=== PATIENT | male | born 1955 | race Caucasian/White ===

== ENCOUNTER 2016-05-30 07:23 | Inpatient (IN) | payer OTHER ==
--- NOTE | 2016-05-15 21:17 | HP ---
HISTORY AND PHYSICAL: DATE OF SURGERY: 05/30/16 DATE OF OFFICE VISIT: 05/15/16 SURGEON: Tina Hinojosa MD PROCEDURE: Left total hip arthroplasty. CHIEF COMPLAINT: Left hip pain. HISTORY OF PRESENT ILLNESS: Mr. Bose is a 61-year-old gentleman with complaints of left hip pain. He has failed conservative management. He has elected to proceed with a left total hip arthroplasty, which is scheduled for with Dr. Hinojosa. PAST MEDICAL HISTORY: Prostate cancer, history of sepsis following prostate surgery, and sleep apnea. PAST SURGICAL HISTORY: Prostate surgery, umbilical hernia repair, ORIF of the left thumb, ORIF of the right tibia, ORIF of the right ankle, ORIF of the left wrist. CURRENT MEDICATIONS: None. ALLERGIES: PIPERACILLIN causing rash and swelling. FAMILY HISTORY: Prostate cancer and heart disease. SOCIAL HISTORY: He is a 61-year-old gentleman. He lives with his spouse. 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 He does not smoke, use drugs or alcohol. REVIEW OF SYSTEMS: A complete 14-point review of systems was reviewed with the patient. All was negative or noncontributory. PHYSICAL EXAMINATION GENERAL: He is well developed, well nourished, in no acute distress. VITAL SIGNS: He stands 5 feet 9 inches tall, he is 210 pounds. His blood pressure is 115/80. His heart rate is 68. HEENT: Normocephalic, atraumatic. NECK: Supple. No palpable lymph nodes. Trachea is midline. PULMONARY: The lungs are clear to auscultation bilaterally. No wheezes, rhonchi, or rales. CARDIO: Regular rate and rhythm. Strong S1, S2. No murmurs, gallops, or rubs. No peripheral edema. ABDOMEN: Soft, nontender, nondistended. NEUROLOGICAL: Alert and oriented x3. Cranial nerves II through XII are intact. MUSCULOSKELETAL: Left lower extremity: The skin is intact. He walks with an antalgic type gait favoring his left leg. The lower extremity muscle group strengths are intact to 5/5. He has intact sensation and 2+ dorsalis pedis pulses. ASSESSMENT AND PLAN: Mr. Bose is a 61-year-old gentleman with complaints of left hip pain. He has failed conservative management and has elected to proceed with a left total hip arthroplasty, which is scheduled for 05/30/[address] Hinojosa discussed the risks and benefits of the surgery at today's visit and all of his questions were answered. Coumadin, Percocet, and Colace were sent to his pharmacy for postoperative pain control and DVT prophylaxis. He will follow up with Dr. Hinojosa in 10 to 14 days after the surgery. LETI SPAIN [id number]/[facility] #: [id number] MTDCorine
[~2016-05-30 07:23] MED LIST: Buffered Lidocaine 1% SYRIN* 3 ML/SYR SYRINGE INTRADERM ONE; Clindamycin 900 MG IVPREMIX(* 900 MG/50 ML SDV IV ONE; Famotidine IV* 10 MG/ML 2 ML (20 mg) IV ONE; Famotidine IV* 10 MG/ML 2 ML (20 mg) ONE; Morphine INJ* 2 MG/ML 1 ML SYRINGE IV PRN; PROCHLORPERAZINE INJ 5 MG/ML 2 ML VIAL IV PRN; Scopolamine 1.5 mg* PATCH ONE; Scopolamine 1.5 mg* PATCH TRANSDERM ONE; fentaNYL* 50 MCG/ML 2 ML VIAL (100 MCG VIAL) IV PRN; oxyCODONE/Acetamin 5/325 MG* TAB PO PRN
[2016-05-30] MEDS ORDERED: fentaNYL* 50 MCG/ML 2 ML VIAL (100 MCG VIAL) ONE (07:59)
[2016-05-30] MEDS ORDERED: KETAMINE HCL* 50 MG/ML 10 ML VIAL ONE (08:00)
[2016-05-30] MEDS ORDERED: Morphine PF AMP (0.5MG/ML)* 5 MG/10 ML AMP ONE (08:00)
[2016-05-30] MEDS ORDERED: Midazolam* 1 MG/ML 5 ML VIAL (5 MG) ONE (08:00)
[2016-05-30] MEDS ORDERED: Midazolam* 1 MG/ML 2 ML VIAL (2 MG) ONE (09:30)
[2016-05-30] MEDS ORDERED: Ondansetron INJ* 2 MG/ML VIAL IV PRN (10:00)
[2016-05-30] MEDS ORDERED: PROCHLORPERAZINE INJ 5 MG/ML 2 ML VIAL IV PRN (10:00)
[2016-05-30] MEDS ORDERED: Naloxone* 0.4 MG/ML 1 ML VIAL IV PRN (10:00)
[2016-05-30] MEDS ORDERED: oxyCODONE/Acetamin 5/325 MG* TAB PO PRN (10:00)
[2016-05-30] MEDS ORDERED: Ibuprofen TAB* 600 MG PO PRN (10:00)
[2016-05-30] MEDS ORDERED: Nalbuphine* 20 MG/ML 1 ML VIAL IV PRN (10:00)
[2016-05-30] MEDS ORDERED: Dexamethasone IV* 4 MG/ML 1 ML (4 MG) ONE (10:52)
[2016-05-30] MEDS ORDERED: Phenylephrine INJ* 10 MG/ML 1 ML VIAL (10 MG) ONE (10:52)
[2016-05-30] MEDS ORDERED: Propofol* 500 MG/50 ML BTL ONE (10:52)
[2016-05-30] MEDS ORDERED: Ondansetron INJ* 2 MG/ML VIAL ONE (10:52)
[2016-05-30] MEDS ORDERED: Lidocaine 2% PF* 5 ML VIAL ONE (10:52)
--- NOTE | 2016-05-30 11:38 | RAD ---
INDICATION: Left hip replacement surgery intraoperative film. COMPARISON: Comparison is made with a prior x-ray study of the left hip from April 29, 2016. TECHNIQUE: An AP portable film of the pelvis was obtained in the operating room. FINDINGS: There are postsurgical changes present in the left hip. The acetabular prostheses is in place. There is a femoral prostheses template present. IMPRESSION: INTRAOPERATIVE CONTROL FILM.
[2016-05-30] MEDS ORDERED: Magnesium Hydroxide LIQ* 30 ML UDC PO PRN (11:58)
[2016-05-30] MEDS ORDERED: LACTULOSE* 30 ML UDC PO PRN (11:58)
[2016-05-30] MEDS ORDERED: Bisacodyl SUPP* 10 MG SUPP PR PRN (11:58)
[2016-05-30] MEDS ORDERED: Acetaminophen TAB* 325 MG PO PRN (11:58)
[2016-05-30] MEDS ORDERED: Polyethylene Glycol 3350* 17 GM PACKET PO PRN (11:58)
[2016-05-30] MEDS ORDERED: Morphine INJ* 2 MG/ML 1 ML SYRINGE IV PRN (11:58)
[2016-05-30] MEDS ORDERED: diPHENhydraMINE IV* 50 MG/ML 1 ml VIAL (BENADRYL) IV PRN (11:58)
--- NOTE | 2016-05-30 12:44 | RAD ---
HISTORY: Status post left hip arthroplasty COMPARISONS: April 29, 2016 VIEWS: 3, Frontal view of the pelvis with frontal and crosstable lateral views of the left hip FINDINGS: BONE DENSITY: Normal. BONES: The patient is status post left hip arthroplasty. There is no hardware failure or osteolysis. JOINTS: There is no arthropathy. ALIGNMENT: There is no dislocation. SOFT TISSUES: Unremarkable. OTHER FINDINGS: None. IMPRESSION: STATUS POST LEFT HIP ARTHROPLASTY
[2016-05-30] MEDS ORDERED: Warfarin TAB(*) 6 MG PO ONE (17:00)
[2016-05-30] MEDS: Clindamycin 600 MG IVPREMIX(* 600 MG/50 ML SDV IV SCH (17:33)
[2016-05-30] MEDS: Docusate CAP* 100 MG PO SCH (21:28)
[2016-05-31] MEDS ORDERED: Ondansetron TAB* 4 MG PO PRN (01:15)
[2016-05-31] MEDS ORDERED: oxyCODONE/Acetamin 5/325 MG* TAB PO PRN (01:15)
[2016-05-31] MEDS: Clindamycin 600 MG IVPREMIX(* 600 MG/50 ML SDV IV SCH ×3 (02:05→17:27)
--- NOTE | 2016-05-31 05:04 | OP ---
OPERATIVE REPORT: DATE OF OPERATION: 05/30/16 DATE OF : 57 SURGEON: Tina Hinojosa MD COMPENSATION DIRECTOR: LETI Green ANESTHESIOLOGIST: Dr. Quintanilla. ANESTHESIA: Spinal. PRE-OP DIAGNOSIS: Severe endstage osteoarthritis of the left hip joint. POST-OP DIAGNOSIS: Severe endstage osteoarthritis of the left hip joint. OPERATIVE PROCEDURE: Left total hip arthroplasty. COMPLICATIONS: None. EBL: 300 cc. SPECIMEN: Femoral head and the acetabular reaming sent to pathology. COMPLICATIONS: None. HARDWARE: This is uncemented [place] total hip hardware. The acetabulum size 58 Tritanium cluster hole shell. 125 mm 625 cancellous bone screw was used. For the insert, a 0-degree Trident X3 polye thylene insert 40F. For the femoral stem, an Accolade TMZF 132-degree neck, size 3.5. Biolox delta 40 mm femoral head was used with a -2.5 [place] V40 taper adaptor sleeves. BRIEF HISTORY/INDICATIONS: Mr. Bose is a 61-year-old gentleman with the years of increasingly sev ere left hip pain. He failed conservative treatment and elected to undergo left total hip arthropla sty. Radiographs confirmed severe endstage disease with bone on bone contact. Informed consent was obtained from the patient. He understood the risks of procedure included, but were not limited to bleeding, infection, damage to nearby structures, continued pain, need for further surgery, intraope rative fracture, nerve palsy, hardware failure, loosening, dislocation, leg length discrepancy, stro ke, heart attack, blood clot and . He wished to proceed. INTRAOPERATIVE FINDINGS: Intraoperatively, the patient was noted to have severe endstage arthritis with complete loss of cartilage in the acetabulum and femoral head. DESCRIPTION OF PROCEDURE: Mr. Bose was identified in the preanesthesia unit. His left lower extre mity was marked as the correct operative side. Informed consent was signed and placed in the chart. The patient was taken to the operating room and placed under spinal anesthesia without difficulty. A Blake catheter was placed. The patient was placed in the right lateral decubitus position on th e PEG board. All bony prominences were well padded. Left lower extremity was prepped and draped in the usual sterile fashion. Preop time-out was made to correctly identify the patient's side and si te. Appropriate perioperative antibiotics were given within 1 hour of incision. A 12 cm standard posterior hip incision was made with a 10 blade and carried down to the lateral fas cial layer. Lateral fascia was incised in line with skin incision. A Charnley retractor was placed and the posterior aspect of the hip joint was visualized. The piriformis and conjoined tendons wer e identified and elevated off the posterolateral femur using electrocautery. These were tagged with two #5 Ethibonds. Next, electrocautery was used to make a standard posterolateral capsular flap. This was also tagged with two #5 Ethibonds. The hip was carefully dislocated. Lesser troch to center of the femoral head measured 55 mm in jocelynn th. Oscillating saw was used to make the appropriate femoral neck cut. The femoral head was carefu lly removed and sent to pathology. The femur was carefully retracted anteriorly. After appropriate placement of retractors, the acetab ulum was easily visualized. A long-handle knife was used to remove any remaining labrum from the ac etabular rim. The acetabulum was sequentially reamed up to a size 57. Bleeding bone bed was obtain ed. 57 trial had good stability, as well as anteversion and abduction angle. Final implant chosen was a 58 mm cluster hole shell Tritanium type. This was impacted into the acetabulum without diffic ulty. There was excellent stability. 125 mm cancellous bone screw was placed in the superior poste rior quadrant for additional stability. There was appropriate anteversion and abduction angle. A Trident X3 0-degree liner 40F was chosen. This was impacted into the acetabular cup without diffi culty. Stability of the the liner was checked and rechecked and noted to be stable. Small amount of osteophyte was removed using a rongeur from the inferior acetabular surface. Attention was next to turned to preparation of the proximal femur. After appropriate placement of r etractor, the proximal femur was easily visualized. Box cut osteotome and canal finder were used to enter the proximal femur. The proximal femur was sequentially reamed up to a size 3.5. A 3.5 broa ch had excellent stability and appropriate anteversion. A 132 neck trial was chosen as well as a 40 , -2.5 femoral head trial. Lesser troch to center of the femoral head measured approximately 55 mm . The hip was reduced and taken through a range of motion. There was approximate leg length and sof t tissue tension. The hip was stable in all positions. The hip was carefully dislocated. All trials were carefully removed. Final implant chosen was an A ccolade TMZF 3.5 with 132-degree neck. This was impacted into the femoral canal without difficulty. There was excellent stability. A 40, - 2.5 Biolox Delta ceramic head was chosen. This was impact ed onto the femoral neck without difficulty. The hip was reduced and taken through range of motion. The hip was stable in all positions. The hi p joint was copiously irrigated with sterile saline. Previously tagged capsule and tendons were estuardo pproximated to the posterolateral femur through 2 trochanteric drill holes. The lateral fascial lay er was reapproximated using interrupted #1 Vicryls. The rest of the incision was closed in a layere d fashion using 0 and 2-0 Vicryls. Skin was closed using 3-0 Monocryl and Dermabond. Sterile Adapti c, 4x4s, and paper tape were used to cover the incision. The patient's anesthesia was reversed without difficulty. He was taken to the PACU in stable condit ion. Intended weightbearing will be weightbearing as tolerated with posterior hip precautions. Int ended DVT prophylaxis will be Coumadin with a Lovenox bridge. [id number]/[facility] #: [id number]
[2016-05-31 06:24] LABS: Hematocrit 38 % (42-52); Hemoglobin 13.1 g/dl (14.0-18.0)
[2016-05-31 06:42] LABS: BUN/Creatinine Ratio 14.6 (8-20); Calcium 8.6 mg/dL (8.6-10.3); EGFR African American 123.3 (>60); EGFR Non-African American 95.8 (>60); Potassium 4.2 mmol/L (3.5-5.0)
--- NOTE | 2016-05-31 06:54 | PN ---
Progress Note - Progress Note SOAP: Subjective: Pt. is alert, reports pain is controlled. Objective: LLE - dressing c/d/i, distally +df/pf, full sens lt, 2+ dp pulse. Vital Signs: Temp Pulse Resp BP Pulse Ox 97.3 F 61 16 98/64 93 05/31/16 03:39 05/31/16 03:39 05/31/16 06:00 05/31/16 03:39 05/31/16 06:00 Laboratory Results - last 24 hr 05/31/16 05/31/16 05/31/16 05:57 05:57 05:57 Hgb 13.1 L Hct 38 L INR (Anticoag Therapy) 1.10 Sodium 134 Potassium 4.2 Chloride 103 Carbon Dioxide 25 Anion Gap 6 BUN 12 Creatinine 0.82 Est GFR ( Amer) 123.3 Est GFR (Non-Af Amer) 95.8 BUN/Creatinine Ratio 14.6 Glucose 166 H Calcium 8.6 Assessment: 61 yo M pod 2 s/p LTHA Plan: wbat with post hip precautions pt/ot 8 mg coumadin tonight with lovenox bridge plan to d/c to home tomorrow with vns
[2016-05-31] MEDS: Docusate CAP* 100 MG PO SCH ×2 (08:03→19:49)
[2016-05-31] MEDS: oxyCODONE TAB* 5 MG TAB PO PRN (08:03)
--- NOTE | 2016-05-31 09:44 | PN ---
Progress Note - Progress Note Note: Anesthesia duramorph followup. Pt did well pain alert. s/p THR, continue oral medswise. NO N/V, -ABARCA, neuro ok, VSS,
[2016-05-31] MEDS: Enoxaparin(*) 30 MG/0.3 ML SYR SUBCUT SCH (10:18)
[2016-05-31] MEDS: oxyCODONE/Acetamin 5/325 MG* TAB PO PRN ×2 (11:37→23:37)
[2016-05-31] MEDS ORDERED: Warfarin TAB(*) 4 MG PO ONE (17:00)
[2016-06-01] MEDS: oxyCODONE/Acetamin 5/325 MG* TAB PO PRN (04:13)
[2016-06-01 07:15] LABS: Hematocrit 39 % (42-52); Hemoglobin 13.3 g/dl (14.0-18.0)
[2016-06-01 08:21] VITALS: BP 122/78
[2016-06-01] MEDS: oxyCODONE TAB* 5 MG TAB PO PRN (08:30)
[2016-06-01] MEDS: Docusate CAP* 100 MG PO SCH (08:30)
[2016-06-01] MEDS: Enoxaparin(*) 30 MG/0.3 ML SYR SUBCUT SCH (08:31)
--- NOTE | 2016-06-01 09:09 | PN ---
Progress Note - Progress Note SOAP: Subjective: [Pt reports doing well. Minimal pain at rest. Pain managed with po meds. Denies CP/SOB/Calf pain/Nausea. No BM yet. Feels ready to go home.] Objective: [A and O x 3, NAD. Sitting in chair. L hip dressing changed. Surgical wound benign, No erythema. Calf soft, NT.. Gross motor and NV function intact LLE. Calf soft/NT Laboratory Results - last 24 hr 06/01/16 06/01/16 07:03 07:03 Hgb 13.3 L Hct 39 L INR (Anticoag Therapy) 1.18 H Vital Signs: Temp Pulse Resp BP Pulse Ox 97.9 F 79 16 122/78 98 06/01/16 07:53 06/01/16 07:53 06/01/16 08:30 06/01/16 07:53 06/01/16 07:53 ] Assessment: [s/p L GILBERT POD #2] Plan: [WBAT LLE with posterior hip precautions Coumadin for DVT prophylaxis - 8 mg today, 6 mg tomorrow Percocet for pain control D/C home with VNS Follow-up with Dr. Hinojosa in 2 weeks.]
[2016-06-02] MEDS ORDERED: Scopolomine PATCH Remove* 1 NOTE MISC PATCH OFF ONE (06:00)
--- NOTE | 2016-06-02 23:03 | DS ---
DISCHARGE SUMMARY: DATE OF ADMISSION: 05/30/16 DATE OF DISCHARGE: 06/01/16 AGE: 61 ADMITTING PHYSICIAN: Dr. Hinojosa. ADMITTING DIAGNOSES: 1. Left hip osteoarthritis. 2. Prostate cancer. 3. Sleep apnea. DISCHARGE DIAGNOSES: 1. Status post left total hip arthroplasty. 2. Prostate cancer. 3. Sleep apnea. PROCEDURE: Left total hip arthroplasty. CONSULTANTS: 1. Physical Therapy. 2. Occupational Therapy. 3. Medicine. BRIEF HISTORY: Mr. Bose is a 61-year-old male with severe degenerative osteoarthritis of his left hip. He failed conservative treatment measures and elected to undergo a left total hip arthroplast y on 05/30/[address] Hinojosa. HOSPITAL COURSE: Mr. Bose was admitted to [facility] on 05/30/16. He underwent an unc omplicated left total hip arthroplasty. Postoperatively, he recovered on the short stay surgical un it. His Blake catheter was removed on postoperative day 1 and he was able to urinate on his own. H e advanced to a regular diet without difficulty. His pain was well controlled with Percocet. He is on no home medications. His vital signs and labs remained stable. He was able to bear weight as t olerated on the left lower extremity. He advanced appropriately with physical therapy and occupatio nal therapy. His DVT prophylaxis was bridged with Lovenox and Coumadin until he reached therapeutic INR range. By postoperative day #2, he was orthopedically and medically stable for discharge home with services. PHYSICAL EXAM: General: On examination, the patient is noted to be calm and cooperative, in no acu te distress. He is alert and oriented x3. Vital signs on the day of discharge: Temperature 97.9 F ahrenheit, pulse rate 79, respirations 18, O2 saturation 98% on room air, blood pressure 122/78. Ex tremities: Examination of the left lower extremity demonstrates a dressing overlying the left hip, which is clean, dry, and intact. His thigh is minimally swollen and compressible. Distally, he has +2 palpable dorsalis pedis pulse, 5/5 ankle dorsiflexion, plantar flexion and strength. Sensation i s intact to light touch. Calf is soft and nontender. LABORATORY DATA: On the day of discharge, hemoglobin 13.3, hematocrit 39, INR 1.18. RADIOGRAPHS: Postoperative radiographs of the left hip demonstrates a left total hip arthroplasty w ith satisfactory prosthesis placement and no acute bony abnormalities. DISCHARGE MEDICATIONS: 1. Percocet 5/325 one to two tabs p.o. q.4 to 6 hours p.r.n. pain. 2. Coumadin 2 mg tablets, dosage to be adjusted every Friday and . 3. Colace 100 mg p.o. t.i.d. p.r.n. constipation. CONDITION ON DISCHARGE: Stable. DISCHARGE INSTRUCTIONS: Mr. Houser is a 61-year-old male, postoperative #2, status post left total h ip arthroplasty, which was uncomplicated. He is orthopedically and medically stable to be discharge d home with services. He has stable vital signs and labs. He will take 8 mg of Coumadin on and 6 mg of Coumadin on Friday. He will have his INR rechecked on Friday. He will have INR draws Mondays and with visiting nurse services and Coumadin dosage will be adjusted appropriate ly. He will remain weightbearing as tolerated on the left lower extremity. He will have home physi fei therapy twice a day. He will take Percocet for pain control and Colace up to 3 times a day for constipation. He will follow up in the office with Dr. Hinojosa in 10 to 14 days for incision check an d suture removal. He was instructed to call Dr. Hinojosa or go immediately to the ER should he develop any new fevers, chills, incision pain, redness, or drainage. He was instructed to go immediately t o the ER should he develop chest pain or shortness of breath. LETI COLLADO [id number]/[facility] #: [id number]
== END 2016-06-01 10:55 | disposition home or self-care (01) | DRG 301 ==
LOC: AA 07:23 → SSU 14:03
PROVIDERS: ADMIT Orthopaedic Surgery Adult Reconstructive Orthopaedic Surgery; ATTEND Orthopaedic Surgery Adult Reconstructive Orthopaedic Surgery
PROC: 0SRB04A Replacement of Left Hip Joint with Ceramic on Polyethylene Synthetic Substitute, Uncemented, Open Approach (ICD-10-PCS; principal; 2016-05-30 09:00)
DX: M16.12 Unilateral primary osteoarthritis, left hip (principal); G47.30 Sleep apnea, unspecified; Z85.46 Personal history of malignant neoplasm of prostate; Z88.0 Allergy status to penicillin; Z82.49 Family history of ischemic heart disease and other diseases of the circulatory system; Z80.42 Family history of malignant neoplasm of prostate
CPT/HCPCS: 36415; 72170; 80048; 85014; 85018; 85610; A9270-GY; C1713; C1776; J1100; J1650; J2250; J2405; J2704; J3010

== ENCOUNTER 2018-07-30 14:11 | Emergency (ER) | payer OTHER ==
[2018-07-30 14:59] VITALS: BP 115/92
[2018-07-30] MEDS ORDERED: DOXYcycline CAP(*) 100 MG PO ONE (15:20)
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
== END 2018-07-30 15:33 | disposition home or self-care (01) ==
LOC: UCCORT 14:11
DX: S70.361A Insect bite (nonvenomous), right thigh, initial encounter (principal); W57.XXXA Bitten or stung by nonvenomous insect and other nonvenomous arthropods, initial encounter
CPT/HCPCS: 99212; A9270-GY; G0463